=== PATIENT | female | born 1940 | race Caucasian/White ===

== ENCOUNTER → 2019-04-30 | Outpatient (CLI) | payer MEDICARE, OTHER ==
--- NOTE | 2019-04-30 20:37 | REP ---
RIGHT KNEE, FOUR VIEWS: Four views of the right knee performed. No acute fracture or dislocation is seen. I do not see significant joint space narrowing. There is a mild to moderate joint effusion. Vascular calcifications are seen posteriorly. IMPRESSION: Mild to moderate joint effusion. No acute fracture. Electronically Signed by Mg Randall MD 05/02/2019 12:54 P
== END ==
LOC: M WUC 17:20
PROVIDERS: ATTEND Physician Assistant
DX: M25.561 Pain in right knee (principal); M25.461 Effusion, right knee